=== PATIENT | male | born 1965 | race African-American/Black ===

== ENCOUNTER 2020-06-27 05:43 | Day surgery (SDC) | payer BC ==
[2020-06-24 14:50] VITALS: BMI 35.4
[2020-06-27 10:45] VITALS: TEMP 98.7
[2020-06-27 11:07] VITALS: BP 127/74; PULSE 71
== END 2020-06-27 11:20 | disposition home or self-care (01) ==
LOC: JASU-ENDO 05:43
PROVIDERS: ATTEND Internal Medicine Gastroenterology
PROC: 0DJD8ZZ Inspection of Lower Intestinal Tract, Via Natural or Artificial Opening Endoscopic (ICD-10-PCS; principal; 2020-06-27 09:30)
DX: Z09 Encounter for follow-up examination after completed treatment for conditions other than malignant neoplasm (principal); Z86.010 Personal history of colon polyps

== ENCOUNTER 2022-11-17 19:36 | Observation (INO) | payer OTHER ==
[2022-11-17 22:28] LABS: BASO % 0.6 % (0-2.0); EOS % 3.2 % (0-4.5); HEMATOCRIT 37.4 % (35.4-49); HEMOGLOBIN 12.2 GM/dL (11.7-16.9); LYMPH % 53.6 % (8-40); MCH 28.3 pg (25.7-33.7); MCHC 32.6 g/dl (32.0-35.9); MEAN CELL VOLUME 86.7 fl (80-96); MEAN PLT VOLUME 6.6 fl (7.5-11.1); MONO % 10.2 % (3.8-10.2); NEUT % 32.4 % (42.8-82.8); PLATELET COUNT 261 10^3/uL (134-434); RBC 4.32 M/mm3 (4.00-5.60); RDW 14.3 % (11.9-15.9); WHITE BLOOD COUNT 5.5 K/mm3 (4.0-10.0)
[2022-11-17 22:48] LABS: CALCIUM 8.7 mg/dL (8.5-10.1)
[2022-11-17 22:49] LABS: ALBUMIN 3.6 g/dl (3.4-5.0); BLOOD UREA NITROGEN 18.3 mg/dL (7-18)
[2022-11-17 22:52] LABS: CREATININE 1.2 mg/dL (0.55-1.3)
[2022-11-17 22:54] LABS: BILIRUBIN,TOTAL 0.4 mg/dL (0.2-1); TOT PROT 6.8 g/dl (6.4-8.2)
[2022-11-17] MEDS ORDERED: ASPIRIN 81 MG CHEWABLE TABLETS PO ONE (22:59)
[2022-11-17] MEDS ORDERED: ASPIRIN 81 MG CHEWABLE TABLETS ONE (23:08)
[2022-11-18 05:49] VITALS: RESP 18; BMI 30.4
[2022-11-18 09:11] LABS: BASO % 0.8 % (0-2.0); HEMATOCRIT 39.2 % (35.4-49); HEMOGLOBIN 12.8 GM/dL (11.7-16.9); LYMPH % 47.6 % (8-40); MCHC 32.7 g/dl (32.0-35.9); MEAN CELL VOLUME 88.6 fl (80-96); MONO % 6.9 % (3.8-10.2); NEUT % 40.7 % (42.8-82.8); PLATELET COUNT 281 10^3/uL (134-434); RBC 4.43 M/mm3 (4.00-5.60); RDW 14.3 % (11.9-15.9); WHITE BLOOD COUNT 4.1 K/mm3 (4.0-10.0)
[2022-11-18 09:39] VITALS: PULSE 69
[2022-11-18] MEDS ORDERED: CHOLECALCIFEROL (VIT D3) 1,000 UNIT (25 MCG) TABLET PO SCH (10:00)
[2022-11-18] MEDS ORDERED: LOSARTAN POTASSIUM 50 MG TABLET PO SCH (10:00)
[2022-11-18] MEDS ORDERED: NIFEdipine E.R. 30 MG TABLET PO SCH (10:00)
[2022-11-18 10:08] LABS: BLOOD UREA NITROGEN 15.2 mg/dL (7-18); CALCIUM 8.9 mg/dL (8.5-10.1); CREATININE 1.1 mg/dL (0.55-1.3); MAGNESIUM 2.3 mg/dL (1.8-2.4); PHOSPHOROUS 3.3 mg/dL (2.5-4.9)
[2022-11-18 10:18] LABS: ACTIVATED PTT 30.3 SECONDS (25.2-36.5); PROTHROMBIN TIME (PATIENT) 11.6 SEC (9.7-13.0)
[2022-11-18 15:03] VITALS: BP 125/77; TEMP 98.6
[2022-11-18] MEDS ORDERED: ATORVASTATIN CA 10 MG TABLET (FP) PO SCH (22:00)
== END 2022-11-18 18:19 | disposition home or self-care (01) ==
LOC: JER 19:36 → JERBED 23:21 → J4W 11-18 05:40
PROVIDERS: ADMIT Internal Medicine; ATTEND Internal Medicine
DX: R07.9 Chest pain, unspecified (principal); E55.9 Vitamin D deficiency, unspecified; E78.5 Hyperlipidemia, unspecified; I10 Essential (primary) hypertension; E66.8 Other obesity; Z68.31 Body mass index [BMI] 31.0-31.9, adult
CPT/HCPCS: 0241U-QW; 36415; 71046-TC-FY; 78452-TC; 80048; 80053; 80061; 83036; 83735; 84100; 84443; 84484; 85025; 85610; 85730; 93005; 93010; 93017; 93306-TC; 99285-25; A9502; G0378

== ENCOUNTER 2023-12-22 15:33 | Emergency (ER) | payer OTHER ==
[2023-12-22 15:42] VITALS: BP 111/53; PULSE 79; RESP 18; TEMP 98.6; BMI 30.9
== END 2023-12-22 16:16 | disposition home or self-care (01) ==
LOC: JER 15:33
DX: S09.90XA Unspecified injury of head, initial encounter (principal); W22.8XXA Striking against or struck by other objects, initial encounter; Y93.89 Activity, other specified; Y92.009 Unspecified place in unspecified non-institutional (private) residence as the place of occurrence of the external cause
CPT/HCPCS: 99282-25